=== PATIENT | female | born 1970 | race Caucasian/White ===

== ENCOUNTER 2017-12-02 11:44 | Emergency (ER) | payer OTHER ==
[~2017-12-02] VITALS: Ht 162.6 cm; Wt 70.3 kg
[2017-12-02 11:49] VITALS: BP 143/85
[2017-12-02] MEDS ORDERED: LIDOCAINE 2% 20 ML MDV ONE (12:18)
[2017-12-02] MEDS ORDERED: LIDOCAINE 1% INJ 50 ML MDV IJ ONE (12:20)
== END 2017-12-02 13:00 | disposition home or self-care (01) ==
LOC: ER 11:48
DX: L03.032 Cellulitis of left toe (principal)
CPT/HCPCS: A4606; J3490; Z7610

== ENCOUNTER 2017-12-13 20:04 | Emergency (ER) | payer OTHER ==
[~2017-12-13] VITALS: Ht 162.6 cm; Wt 81.6 kg
[2017-12-13 20:10] VITALS: BP 148/83
--- NOTE | 2017-12-13 21:15 | NUR ---
DEAN SANDERS AT BEDSIDE FOR EVAL.
[2017-12-13] MEDS ORDERED: LIDOCAINE HCL/PF 1% 30 ML VIAL IM ONE (21:30)
[2017-12-13] MEDS ORDERED: IBUPROFEN 600 MG TABLET PO ONE ×2 (21:30→21:38)
[2017-12-13] MEDS ORDERED: TDAP [DIPH/PERTUSSIS/TET] 0.5 ML VIAL IM ONE ×2 (21:30→21:38)
[2017-12-13] MEDS ORDERED: oxyCODONE/APAP (5/325 MG) 1 UDTAB TABLET PO ONE (21:30)
[2017-12-13] MEDS ORDERED: oxyCODONE/APAP (5/325 MG) 1 UDTAB TABLET ONE (21:37)
== END 2017-12-13 22:25 | disposition home or self-care (01) ==
LOC: ER 20:10
DX: L60.0 Ingrowing nail (principal)
CPT/HCPCS: 11730; 90471; 90715; 99283; A4606; Z7610

== ENCOUNTER 2017-12-17 12:19 | Emergency (ER) | payer OTHER ==
[~2017-12-17] VITALS: Ht 162.6 cm; Wt 77.1 kg
[2017-12-17 12:19] VITALS: BP 150/88
== END 2017-12-17 13:27 | disposition home or self-care (01) ==
LOC: ER 12:23
DX: L60.0 Ingrowing nail (principal); B34.9 Viral infection, unspecified; L03.032 Cellulitis of left toe
CPT/HCPCS: 99283; A4606; A6403; Z7610

== ENCOUNTER 2018-11-22 10:01 | Emergency (ER) | payer OTHER ==
[~2018-11-22] VITALS: Ht 152.4 cm; Wt 81.6 kg
--- NOTE | 2018-11-22 10:20 | NUR ---
PT SEEN AND EXAMINED BY DR. FOSTER.
--- NOTE | 2018-11-22 10:25 | NUR ---
LABS DRAWNED AND SENT TO LAB.
--- NOTE | 2018-11-22 10:29 | NUR ---
PT BIB SPOUSE, C/O URI SYMPTOMS, PT IS AAOX4, NOT IN RESPIRATORY DISTRESS, VS STABLE, KEPT RESTED AND COMFORTABLE.
[2018-11-22 10:34] LABS: BASOPHILS % (AUTO) 0.7 % (0.0-2.0); EOSINOPHILS % (AUTO) 2.1 % (0.0-6.0); HEMATOCRIT 42 % (33-45); HEMOGLOBIN 14.3 g/dL (11.5-14.8); LYMPHOCYTES # (AUTO) 1.7 /CMM (0.8-4.8); MEAN CORPUSCULAR HGB CONC 34 g/dl (31.0-36.0); MEAN CORPUSCULAR VOLUME 92 fL (82-100); MONOCYTES # (AUTO) 0.4 /CMM (0.1-1.30); MONOCYTES % (AUTO) 5.6 % (2.0-12.0); NEUTROPHILS # (AUTO) 4.6 /CMM (1.8-8.9); NEUTROPHILS % (AUTO) 66.6 % (43.0-81.0); PLATELET COUNT (AUTO) 223 /CMM (150-450); RED BLOOD CELL COUNT(AUTO) 4.58 MIL/uL (4.0-5.2); WHITE BLOOD COUNT (AUTO) 6.9 K/uL (4.3-11.0)
[2018-11-22 10:44] LABS: CALCIUM, SERUM 8.7 mg/dL (8.5-10.1); CARBON DIOXIDE 28 mmol/L (21-32); CHLORIDE 108 mmol/L (98-107); CREATININE 0.6 mg/dL (0.6-1.3); GLUCOSE 97 mg/dL (74-106); SODIUM SERUM 141 mmol/L (136-145); UREA NITROGEN, BLOOD 10 mg/dL (7-18)
--- NOTE | 2018-11-22 10:47 | NUR ---
TREASURY AGENT AT BEDSIDE FOR XRAY.
[2018-11-22 11:24] VITALS: BP 125/76
--- NOTE | 2018-11-22 11:24 | NUR ---
Patient discharged to home in stable condition. Written and verbal after care instructions given. Patient verbalizes understanding of instruction.
== END 2018-11-22 11:26 | disposition home or self-care (01) ==
LOC: ER 10:01
DX: B34.9 Viral infection, unspecified (principal); J20.8 Acute bronchitis due to other specified organisms
CPT/HCPCS: 36415; 71045; 80048; 84484; 85025; 87804 ×2; 93005; 99284; A4606; 87400

== ENCOUNTER 2019-01-28 22:54 | Emergency (ER) | payer MEDICAID, OTHER ==
[~2019-01-28] VITALS: Ht 170.2 cm; Wt 81.6 kg
[2019-01-28 23:08] VITALS: BP 141/90
[2019-01-29] MEDS ORDERED: IPRATROPIUM NEB FS 0.5 MG/2.5 ML AMPUL.NEB ONE (00:23)
[2019-01-29] MEDS ORDERED: ALBUTEROL FS 2.5 MG/3 ML VIAL.NEB ONE (00:23)
[2019-01-29] MEDS ORDERED: IPRATROPIUM NEB FS 0.5 MG/2.5 ML AMPUL.NEB NEB ONE (00:30)
[2019-01-29] MEDS ORDERED: ALBUTEROL FS 2.5 MG/3 ML VIAL.NEB NEB ONE (00:30)
== END 2019-01-29 01:02 | disposition home or self-care (01) ==
LOC: ER 22:54
DX: J40 Bronchitis, not specified as acute or chronic (principal); J98.01 Acute bronchospasm; J06.9 Acute upper respiratory infection, unspecified